=== PATIENT | male | born 1940 | race Caucasian/White ===

== ENCOUNTER 2024-10-15 12:10 | Emergency (ER) | payer MEDICARE, MEDICAID ==
[~2024-10-15] VITALS: Ht 160 cm; Wt 77.0 kg
[2024-10-15 12:13] VITALS: O2SAT 97
[2024-10-15 15:00] VITALS: BP 133/81; PULSE 91; RESP 16; TEMP 36.7; O2SAT 99
== END 2024-10-15 15:18 | disposition home or self-care (01) ==
LOC: ER 12:10
DX: S46.001A Unspecified injury of muscle(s) and tendon(s) of the rotator cuff of right shoulder, initial encounter (principal); F10.129 Alcohol abuse with intoxication, unspecified; E11.9 Type 2 diabetes mellitus without complications; E78.00 Pure hypercholesterolemia, unspecified; I10 Essential (primary) hypertension; X58.XXXA Exposure to other specified factors, initial encounter; Y93.89 Activity, other specified; Y92.89 Other specified places as the place of occurrence of the external cause; Y99.8 Other external cause status; Y90.9 Presence of alcohol in blood, level not specified
CPT/HCPCS: 72170; 73030; 99284